=== PATIENT | male | born 1980 | race Caucasian/White ===

== ENCOUNTER 2021-01-13 19:16 | Emergency (ER) | payer OTHER ==
[~2021-01-13 19:16] MED LIST: CYCLOBENZAPRINE10 MG PO; IBUPROFEN800 MG PO
[2021-01-13] MEDS ORDERED: BACLOFEN 10MG T10 MG PO (20:56)
[2021-01-13] MEDS ORDERED: NAPROXEN500 MG PO (20:56)
== END 2021-01-13 21:17 | disposition home or self-care (01) ==
LOC: FER 19:16
DX: S46.912A Strain of unspecified muscle, fascia and tendon at shoulder and upper arm level, left arm, initial encounter (principal); S40.812A Abrasion of left upper arm, initial encounter; F17.210 Nicotine dependence, cigarettes, uncomplicated; V49.40XA Driver injured in collision with unspecified motor vehicles in traffic accident, initial encounter; Y92.410 Unspecified street and highway as the place of occurrence of the external cause
CPT/HCPCS: 73030; 96372; J1100; J1885